=== PATIENT | female | born 1965 | race Two or more races ===

== ENCOUNTER 2024-06-15 20:47 | Emergency (ER) | payer BC ==
[~2024-06-15] VITALS: Ht 162.6 cm; Wt 87.1 kg
[2024-06-15] MEDS ORDERED: VIMPAT50 MG PO (21:36)
[2024-06-15] MEDS ORDERED: GRALISE600 MG PO (21:37)
[2024-06-15] MEDS ORDERED: CLARITIN10 M1 PO (21:37)
[2024-06-15] MEDS ORDERED: BENADRYL ALLERG50 MG PO (21:37)
[2024-06-15] MEDS ORDERED: NEURONTIN300 MG PO (21:37)
[2024-06-16] MEDS ORDERED: ORPHENADRINE CITRATE 30 MG/ML AMPUL IM STA (02:39)
[2024-06-16] MEDS ORDERED: ORPHENADRINE CITRATE 30 MG/ML AMPUL ONE (02:44)
== END 2024-06-16 03:00 | disposition home or self-care (01) ==
LOC: ER 20:50
DX: S50.12XA Contusion of left forearm, initial encounter (principal); S80.12XA Contusion of left lower leg, initial encounter; S80.02XA Contusion of left knee, initial encounter; W18.39XA Other fall on same level, initial encounter; Y93.89 Activity, other specified; Y92.59 Other trade areas as the place of occurrence of the external cause; Y99.9 Unspecified external cause status; M62.830 Muscle spasm of back; Z88.8 Allergy status to other drugs, medicaments and biological substances; Z88.6 Allergy status to analgesic agent; Z91.040 Latex allergy status